=== PATIENT | female | born 1990 | race African-American/Black ===

== ENCOUNTER 2017-09-19 17:44 | Emergency (ER) | payer OTHER ==
[~2017-09-19] VITALS: Ht 157.5 cm; Wt 65.8 kg
[~2017-09-19 17:44] MED LIST: AZITHROMYCIN 2250 MG PO; FLAGYL500 MG PO; IBUPROFEN 600600 M1 PO; IBUPROFEN 800800 M1 PO; IRON SUPPLEMEN325 MG PO; IRON325 PO; NOHOMEMEDICATIONS; NORCO 5-325 TA1 EACH PO; PENICILLIN V P500 MG PO; PENICILLIN VK250 MG PO; PREDNISONE 10 M10 M1 PO; PROAIR HFA8.5 GM INH; TRINATE TABLET1 TAB PO; ZOFRAN ODT4 MG PO
[2017-09-19 18:02] VITALS: BP 104/66
== END 2017-09-19 18:46 | disposition home or self-care (01) ==
LOC: ER 17:44
DX: J02.0 Streptococcal pharyngitis (principal); J45.909 Unspecified asthma, uncomplicated; F10.99 Alcohol use, unspecified with unspecified alcohol-induced disorder

== ENCOUNTER 2018-01-25 11:51 | Emergency (ER) | payer OTHER ==
[~2018-01-25] VITALS: Ht 157.5 cm; Wt 61.2 kg
[2018-01-25 12:17] LABS: URINE BILIRUBIN NEGATIVE (Negative); URINE BLOOD NEGATIVE (Negative); URINE CLARITY CLEAR; URINE COLOR YELLOW; URINE GLUCOSE-RANDOM* NEGATIVE (Negative); URINE KETONES NEGATIVE (Negative); URINE LEUKOCYTES NEGATIVE (Negative); URINE NITRITE NEGATIVE (Negative); URINE PROTEIN (DIPSTICK) NEGATIVE (Negative); URINE UROBILINOGEN 0.2 E.U./dl (0.2-1.0)
[2018-01-25 13:02] LABS: ABSOLUTE NEUTROPHILS 3.6 thou/uL (1.4-8.2); BASOPHILS 0.1 % (0.0-2.0); EOSINOPHILS 2.8 % (0.0-3.0); HEMATOCRIT 35.2 % (37.0-47.0); HEMOGLOBIN 11.6 gm/dL (12.0-15.0); LYMPHOCYTES 16.3 % (24.0-44.0); MCH 28.5 pg (26.0-34.0); MCV 86.1 fL (80.0-100.0); MONOCYTES 8.2 % (1.0-8.0); PLATELET COUNT 217 thou/uL (150-400); POLYS 72.6 % (36.0-66.0); RBC 4.09 mil/uL (4.20-5.00); RDW 14.1 % (10.5-14.5); WBC 4.9 thou/uL (4.0-11.0)
[2018-01-25 13:12] LABS: CREATININE 0.6 mg/dL (0.6-1.0); POTASSIUM 3.4 mmol/L (3.5-5.1)
[2018-01-25 13:18] LABS: ALBUMIN 3.7 g/dL (3.4-5.0); DIRECT BILIRUBIN 0.1 mg/dL (<0.1-0.3); TOTAL BILIRUBIN 0.8 mg/dL (<0.1-1.0); TOTAL PROTEIN 7.8 g/dL (6.4-8.2)
[2018-01-25] MEDS ORDERED: ZOFRAN ODT4 MG PO (13:20)
== END 2018-01-25 13:56 | disposition home or self-care (01) ==
LOC: ER 11:51
PROVIDERS: Emergency Medicine
DX: R10.10 Upper abdominal pain, unspecified (principal); R11.2 Nausea with vomiting, unspecified; J45.909 Unspecified asthma, uncomplicated; F17.210 Nicotine dependence, cigarettes, uncomplicated

== ENCOUNTER 2018-02-07 14:35 | Emergency (ER) | payer OTHER ==
[~2018-02-07] VITALS: Ht 157.5 cm; Wt 54.4 kg
[2018-02-07] MEDS ORDERED: AMOXICILLIN 50500 MG PO (15:51)
== END 2018-02-07 15:52 | disposition home or self-care (01) ==
LOC: ER 14:35
DX: J32.9 Chronic sinusitis, unspecified (principal); J06.9 Acute upper respiratory infection, unspecified; J45.909 Unspecified asthma, uncomplicated; F17.210 Nicotine dependence, cigarettes, uncomplicated